=== PATIENT | female | born 1990 | race Caucasian/White ===

== ENCOUNTER 2020-04-26 10:02 | Emergency (ER) | payer MEDICAID ==
[~2020-04-26] VITALS: Ht 170.2 cm; Wt 70.0 kg
[2020-04-26] MEDS ORDERED: MORPHINE SULFATE 4 MG/ML CPJ (NOT FOR IM USE) IV STA (10:18)
[2020-04-26 10:52] LABS: BASOPHILS % 0.3 % (0.0-2.0); EOSINOPHILS % 0.1 % (0.0-5.0); HEMATOCRIT. 32.5 % (36.0-48.0); HEMOGLOBIN. 10.7 g/dL (12.0-16.0); LYMPHOCYTES % 16.8 % (20.0-50.0); MEAN CORPUSCULAR HEMOGLOBIN 29.3 pg (28.0-32.0); MEAN PLATELET VOLUME 9.9 fl (7.4-10.4); MONOCYTES % 9.6 % (2.0-8.0); NEUTROPHILS % 73.2 % (40.0-76.0); PLATELET 219 x1000/uL (130-400); RED BLOOD CELL COUNT 3.65 mill/uL (4.2-5.4); RED CELL DISTRIBUTION WIDTH 15.2 % (11.6-14.6)
[2020-04-26 10:58] LABS: CHLORIDE 107 mEq/L (98-107)
[2020-04-26 11:00] LABS: HCG SCREEN NEGATIVE
[2020-04-26 11:06] VITALS: BP 108/60
== END 2020-04-26 11:46 | disposition home or self-care (01) ==
LOC: ER 10:02
DX: Z48.01 Encounter for change or removal of surgical wound dressing (principal); R55 Syncope and collapse
CPT/HCPCS: 36415; 71045; 80053; 84484; 84703; 85025; 93005; 96374; 99285; J2270

== ENCOUNTER 2025-02-11 11:24 | Emergency (ER) | payer MEDICAID ==
[~2025-02-11] VITALS: Ht 167.6 cm; Wt 83.9 kg
[2025-02-11 11:28] VITALS: O2SAT 99
[2025-02-11 11:55] VITALS: BP 113/71; PULSE 85; RESP 18; TEMP 37.1; O2SAT 100
== END 2025-02-11 14:31 | disposition left against medical advice (07) ==
LOC: ER 11:24
DX: R19.09 Other intra-abdominal and pelvic swelling, mass and lump (principal); Z53.1 Procedure and treatment not carried out because of patient's decision for reasons of belief and group pressure